=== PATIENT | male | born 1960 | race African-American/Black ===

== ENCOUNTER 2019-03-17 14:16 | Inpatient (IN) | payer MEDICARE, MEDICAID ==
[~2019-03-17] VITALS: Ht 167.6 cm; Wt 54.6 kg
[2019-03-17] MEDS ORDERED: ONDANSETRON HCL 4MG/2ML INJ IV STA (14:45)
[2019-03-17] MEDS ORDERED: MORPHINE SULFATE 4 MG/ML CPJ (NOT FOR IM USE) IV STA (14:45)
[2019-03-17] MEDS ORDERED: SODIUM CHLORIDE 0.9% 500 ML IV ONE (14:45)
[2019-03-17 15:36] LABS: CHLORIDE 101 mEq/L (98-107)
[2019-03-17 15:37] LABS: INR 1.1
[2019-03-17 15:38] LABS: HEMATOCRIT. 35.2 % (42.0-52.0); HEMOGLOBIN. 11.8 g/dL (14.0-18.0); MEAN CORPUSCULAR HEMOGLOBIN 30.7 pg (28.0-32.0); MEAN CORPUSCULAR VOLUME 91.6 fL (80.0-94.0); MEAN PLATELET VOLUME 6.6 fl (7.4-10.4); PLATELET 228 x1000/uL (130-400); RED BLOOD CELL COUNT 3.84 mill/uL (4.7-6.1)
[2019-03-17 16:50] LABS: PLATELET ESTIMATE NORMAL
[2019-03-17 17:20] LABS: CLARITY URINE CLEAR (CLEAR); COLOR URINE YELLOW (YELLOW); KETONES URINE NEGATIVE (NEGATIVE); LEUKOCYTE ESTERASE URINE NEGATIVE (NEGATIVE); NITRITE URINE NEGATIVE (NEGATIVE); OCCULT BLOOD URINE 3+ (NEGATIVE); PROTEIN URINE NEGATIVE (NEGATIVE); SPECIFIC GRAVITY URINE 1.011 (1.005-1.030); UROBILINOGEN URINE 0.2 E.U./dL (0.2-1.0)
[2019-03-17 22:20] VITALS: BP 124/83
[2019-03-18] VITALS: BP 106/77
[2019-03-18] MEDS ORDERED: CLONIDINE 0.1MG TABLET PO PRN
[2019-03-18] MEDS ORDERED: MORPHINE SULFATE 2 MG/ML CPJ (NOT FOR IM USE) IV PRN
[2019-03-18] MEDS ORDERED: ONDANSETRON HCL 4MG/2ML INJ IV PRN
[2019-03-18 04:00] VITALS: BP 103/78
[2019-03-18 05:58] LABS: BASOPHILS % 0.2 % (0.0-2.0); EOSINOPHILS % 0.1 % (0.0-5.0); HEMATOCRIT. 35.8 % (42.0-52.0); LYMPHOCYTES % 11.2 % (20.0-50.0); MEAN CORPUSCULAR VOLUME 92.8 fL (80.0-94.0); NEUTROPHILS % 81.5 % (40.0-76.0); PLATELET 234 x1000/uL (130-400); RED BLOOD CELL COUNT 3.86 mill/uL (4.7-6.1); RED CELL DISTRIBUTION WIDTH 13.9 % (11.6-14.6)
[2019-03-18 06:09] LABS: CHLORIDE 105 mEq/L (98-107)
[2019-03-18 06:23] LABS: LDL CHOLESTEROL 50 mg/dL (5-100)
[2019-03-18 06:25] LABS: HDL CHOLESTEROL 68 mg/dL (40-59)
[2019-03-18 08:00] VITALS: BP 92/62
[2019-03-18 12:00] VITALS: BP 105/73
[2019-03-18 16:00] VITALS: BP 102/66
[2019-03-18 20:00] VITALS: BP 116/81
[2019-03-18] MEDS: PANTOPRAZOLE SODIUM 40 MG/VIAL IV SCH (21:05)
[2019-03-19] VITALS: BP 120/82
[2019-03-19 04:00] VITALS: BP 121/84
[2019-03-19] MEDS ORDERED: SODIUM BICARBONATE 4% (2.4MEQ) 5ML VIAL IV ONE (08:10)
[2019-03-19] MEDS ORDERED: LIDOCAINE HCL 1% 20ML VIAL (Pyxis) INJ ONE (08:10)
[2019-03-19] MEDS: PANTOPRAZOLE SODIUM 40 MG/VIAL IV SCH ×2 (09:00→21:55)
[2019-03-19] MEDS ORDERED: BACTERIOSTATIC SODIUM CHLORIDE 0.9% 30ML VIAL IJ ONE (12:58)
[2019-03-19] MEDS ORDERED: DIAZEPAM 5 MG/ML 2ML CPJ IV NR (13:15)
[2019-03-19] MEDS ORDERED: MIDAZOLAM HCL 5 MG/5 ML VIAL ONE (14:12)
[2019-03-19] MEDS ORDERED: FENTANYL CITRATE/PF 50MCG/ML 2ML VIAL ONE (14:12)
[2019-03-19] MEDS ORDERED: DIAZEPAM 5 MG/ML 2ML CPJ ONE ×2 (14:13→14:34)
[2019-03-19] MEDS ORDERED: MIDAZOLAM HCL 5 MG/5 ML VIAL IV PRN (14:20)
[2019-03-19] MEDS ORDERED: FENTANYL CITRATE/PF 50MCG/ML 2ML VIAL IV PRN (14:21)
[2019-03-19] MEDS ORDERED: DIPHENHYDRAMINE 50MG/ML VIAL IV PRN (14:36)
[2019-03-19] MEDS ORDERED: DIPHENHYDRAMINE 50MG/ML VIAL ONE (14:40)
[2019-03-19 18:30] LABS: BG BASE EXCESS -5.1 mmol/L (-2.0-2.0); BG CARBOXYHEMOGLOBIN 0.3 % (0.5-1.5); BG FRACTION INSPIRED OXYGEN 28; BG HCO3 ACT 21.1 mmol/L (22.0-26.0); BG METHEMOGLOBIN 0.1 % (0.0-1.5); BG OXYHEMOGLOBIN 98.6 % (94.0-97.0); BG PCO2 43.7 mmHg (35.0-45.0); BG PH 7.302 (7.350-7.450); BG SAMPLE SITE RIGHT RADIAL; BG TOTAL HEMOGLOBIN 11.1 g/dL (12.0-18.0); BG VENT MODE NASAL CANNULA
[2019-03-19] MEDS ORDERED: NALOXONE HCL 0.4 MG/ML 1ML VIAL IV NR (18:30)
[2019-03-19] MEDS ORDERED: FLUMAZENIL 0.1 MG/ML 5ML VIAL IV ONE (18:36)
[2019-03-19] MEDS: FLUMAZENIL 0.1 MG/ML 5ML VIAL IV NR ×2 (18:38→18:46)
[2019-03-19] MEDS: FLUMAZENIL 0.1 MG/ML 5ML VIAL IV SCH ×2 (19:11→19:13)
[2019-03-19] MEDS ORDERED: DEXTROSE 50% WATER 50ML SYRINGE IV SCH (20:00)
[2019-03-19 21:51] LABS: BASOPHILS % 0.2 % (0.0-2.0); HEMOGLOBIN. 11.9 g/dL (14.0-18.0); LYMPHOCYTES % 7.6 % (20.0-50.0); MEAN CORPUSCULAR HEMOGLOBIN 30.5 pg (28.0-32.0); MEAN CORPUSCULAR VOLUME 94.8 fL (80.0-94.0); MEAN PLATELET VOLUME 6.5 fl (7.4-10.4); MONOCYTES % 6.3 % (2.0-8.0); NEUTROPHILS % 85.9 % (40.0-76.0); PLATELET 207 x1000/uL (130-400); RED CELL DISTRIBUTION WIDTH 14.1 % (11.6-14.6)
[2019-03-19 21:57] LABS: CHLORIDE 108 mEq/L (98-107)
[2019-03-19 22:12] LABS: PHOSPHORUS 8.1 mg/dL (2.5-4.9)
[2019-03-20] VITALS: BP 106/81
[2019-03-20 00:45] LABS: PROTHROMBIN TIME 10.7 sec (9.6-11.0)
[2019-03-20 04:06] VITALS: BP 104/69
[2019-03-20 08:48] VITALS: BP 106/74
[2019-03-20] MEDS: PANTOPRAZOLE SODIUM 40 MG/VIAL IV SCH ×2 (09:00→21:13)
[2019-03-20 09:17] LABS: BASOPHILS % 0.1 % (0.0-2.0); EOSINOPHILS % 0.2 % (0.0-5.0); HEMATOCRIT. 37.3 % (42.0-52.0); HEMOGLOBIN. 12.3 g/dL (14.0-18.0); LYMPHOCYTES % 8.5 % (20.0-50.0); MEAN CORPUSCULAR HEMOGLOBIN 30.3 pg (28.0-32.0); MEAN CORPUSCULAR VOLUME 91.7 fL (80.0-94.0); MONOCYTES % 7.3 % (2.0-8.0); NEUTROPHILS % 83.9 % (40.0-76.0); PLATELET 271 x1000/uL (130-400); RED BLOOD CELL COUNT 4.07 mill/uL (4.7-6.1); RED CELL DISTRIBUTION WIDTH 13.9 % (11.6-14.6)
[2019-03-20 09:42] LABS: CHLORIDE 105 mEq/L (98-107)
[2019-03-20] MEDS ORDERED: EZ-HD SUSPENSION(BARIUM SULFATE 340GM) PO ONE (10:04)
[2019-03-20] MEDS ORDERED: BARIUM SULFATE 176 GM SUSP.RECON ONE (10:05)
[2019-03-20] MEDS ORDERED: SIMETHICONE/SOD BICARB/CIT AC 1 EACH GRAN.EF.PK ONE (10:06)
[2019-03-20 10:46] LABS: PHOSPHORUS 8.9 mg/dL (2.5-4.9)
[2019-03-20 16:11] VITALS: BP 117/77
[2019-03-20 20:00] VITALS: BP 115/70
[2019-03-21] VITALS: BP 121/77
[2019-03-21] MEDS ORDERED: LIDOCAINE HCL 1% 20ML VIAL (Pyxis) INJ ONE (07:24)
[2019-03-21] MEDS ORDERED: SODIUM BICARBONATE 4% (2.4MEQ) 5ML VIAL IV ONE (07:24)
[2019-03-21 08:00] VITALS: BP 101/70
[2019-03-21] MEDS: PANTOPRAZOLE SODIUM 40 MG/VIAL IV SCH (09:29)
[2019-03-21 12:06] VITALS: BP 100/66
[2019-03-21 16:06] VITALS: BP 117/73
[2019-03-21 20:00] VITALS: BP 109/77
[2019-03-21] MEDS: CLARITHROMYCIN 500MG TABLET PO SCH (21:29)
[2019-03-21] MEDS: AMOXICILLIN 500 MG CAPSULE PO SCH (21:29)
[2019-03-21] MEDS: OMEPRAZOLE 20MG CAPSULE EXTENDED RELEASE PO SCH (21:29)
[2019-03-22] VITALS: BP 91/65
[2019-03-22 04:00] VITALS: BP 108/73
[2019-03-22] MEDS: OMEPRAZOLE 20MG CAPSULE EXTENDED RELEASE PO SCH ×2 (06:41→20:34)
[2019-03-22 07:11] LABS: CHLORIDE 105 mEq/L (98-107)
[2019-03-22 07:17] LABS: HEMATOCRIT. 34.6 % (42.0-52.0); HEMOGLOBIN. 11.6 g/dL (14.0-18.0); MEAN CORPUSCULAR HEMOGLOBIN 30.5 pg (28.0-32.0); MEAN CORPUSCULAR VOLUME 91.4 fL (80.0-94.0); MEAN PLATELET VOLUME 6.5 fl (7.4-10.4); PLATELET 183 x1000/uL (130-400); RED BLOOD CELL COUNT 3.79 mill/uL (4.7-6.1); RED CELL DISTRIBUTION WIDTH 13.9 % (11.6-14.6)
[2019-03-22 07:29] LABS: PHOSPHORUS 7.5 mg/dL (2.5-4.9)
[2019-03-22 08:00] VITALS: BP 107/72
[2019-03-22] MEDS: CLARITHROMYCIN 500MG TABLET PO SCH ×2 (08:29→20:34)
[2019-03-22] MEDS: AMOXICILLIN 500 MG CAPSULE PO SCH ×2 (08:29→20:36)
[2019-03-22 12:00] VITALS: BP 99/63
[2019-03-22 14:54] LABS: HEPATITIS B SURFACE ANTIGEN NEGATIVE
[2019-03-22 15:24] LABS: HEPATITIS A AB IGM NEGATIVE (NEGATIVE)
[2019-03-22 16:00] VITALS: BP 98/68
[2019-03-22 18:47] LABS: PLATELET ESTIMATE NORMAL
[2019-03-22 20:00] VITALS: BP 101/69
[2019-03-22] MEDS: CALCIUM ACETATE 667MG CAPSULE PO SCH (20:34)
[2019-03-22 22:35] LABS: CLARITY URINE CLOUDY (CLEAR); COLOR URINE YELLOW (YELLOW); KETONES URINE TRACE (NEGATIVE); LEUKOCYTE ESTERASE URINE 1+ (NEGATIVE); NITRITE URINE NEGATIVE (NEGATIVE); OCCULT BLOOD URINE NEGATIVE (NEGATIVE); PH URINE 5.5 (4.5-8.0); PROTEIN URINE TRACE (NEGATIVE); SPECIFIC GRAVITY URINE 1.035 (1.005-1.030)
[2019-03-23] VITALS: BP 99/64
[2019-03-23 04:00] VITALS: BP 99/67
[2019-03-23] MEDS: OMEPRAZOLE 20MG CAPSULE EXTENDED RELEASE PO SCH ×2 (06:24→21:49)
[2019-03-23 07:47] LABS: HEMATOCRIT. 30.6 % (42.0-52.0); HEMOGLOBIN. 10.4 g/dL (14.0-18.0); MEAN CORPUSCULAR HEMOGLOBIN 30.6 pg (28.0-32.0); MEAN CORPUSCULAR VOLUME 90.3 fL (80.0-94.0); MEAN PLATELET VOLUME 6.8 fl (7.4-10.4); PLATELET 178 x1000/uL (130-400); RED BLOOD CELL COUNT 3.39 mill/uL (4.7-6.1); RED CELL DISTRIBUTION WIDTH 13.8 % (11.6-14.6)
[2019-03-23 08:00] VITALS: BP 92/63
[2019-03-23 08:12] LABS: PHOSPHORUS 6.1 mg/dL (2.5-4.9)
[2019-03-23] MEDS: CLARITHROMYCIN 500MG TABLET PO SCH ×2 (10:10→21:54)
[2019-03-23] MEDS: CALCIUM ACETATE 667MG CAPSULE PO SCH ×4 (10:10→19:49)
[2019-03-23] MEDS: AMOXICILLIN 500 MG CAPSULE PO SCH ×2 (10:10→19:47)
[2019-03-23 10:53] LABS: CARCINO EMBRYONIC ANTIGEN 7.1 ng/ml; PROSTRATE SPECIFIC AG TOTAL 0.44 ng/mL (0.0-4.0)
[2019-03-23 12:00] VITALS: BP 98/59
[2019-03-23 12:05] LABS: PLATELET ESTIMATE NORMAL
[2019-03-23 16:00] VITALS: BP 125/86
[2019-03-23 20:00] VITALS: BP 105/77
[2019-03-24] VITALS: BP 134/74
[2019-03-24 04:00] VITALS: BP 113/76
[2019-03-24] MEDS: OMEPRAZOLE 20MG CAPSULE EXTENDED RELEASE PO SCH ×2 (06:37→21:45)
[2019-03-24 07:06] LABS: BASOPHILS % 0.2 % (0.0-2.0); HEMATOCRIT. 31.9 % (42.0-52.0); HEMOGLOBIN. 10.6 g/dL (14.0-18.0); LYMPHOCYTES % 8.1 % (20.0-50.0); MEAN CORPUSCULAR HEMOGLOBIN 30.7 pg (28.0-32.0); MEAN CORPUSCULAR VOLUME 92.5 fL (80.0-94.0); MEAN PLATELET VOLUME 7.3 fl (7.4-10.4); MONOCYTES % 6.3 % (2.0-8.0); NEUTROPHILS % 85.4 % (40.0-76.0); PLATELET 209 x1000/uL (130-400); RED BLOOD CELL COUNT 3.45 mill/uL (4.7-6.1); RED CELL DISTRIBUTION WIDTH 13.9 % (11.6-14.6)
[2019-03-24] MEDS: CALCIUM ACETATE 667MG CAPSULE PO SCH ×3 (07:50→18:18)
[2019-03-24 08:00] VITALS: BP 147/58
[2019-03-24 08:17] LABS: PHOSPHORUS 9.1 mg/dL (2.5-4.9)
[2019-03-24] MEDS: CLARITHROMYCIN 500MG TABLET PO SCH ×2 (09:00→21:45)
[2019-03-24] MEDS ORDERED: SODIUM POLYSTYRENE SULFONATE 15 G/60 ML BOT PO SCH (10:00)
[2019-03-24] MEDS: AMOXICILLIN 250MG CAPSULE PO SCH ×2 (11:00→21:45)
[2019-03-24 12:00] VITALS: BP 98/72
[2019-03-24 16:00] VITALS: BP 109/78
[2019-03-24 20:26] VITALS: BP 106/79
[2019-03-24] MEDS: FLUCONAZOLE 100MG TABLET PO SCH (21:45)
[2019-03-25] VITALS: BP 108/70
[2019-03-25 04:00] VITALS: BP 109/75
[2019-03-25 06:37] LABS: CHLORIDE 105 mEq/L (98-107)
[2019-03-25 06:48] LABS: BASOPHILS % 0.2 % (0.0-2.0); EOSINOPHILS % 0.1 % (0.0-5.0); HEMATOCRIT. 31.3 % (42.0-52.0); HEMOGLOBIN. 10.5 g/dL (14.0-18.0); LYMPHOCYTES % 7.2 % (20.0-50.0); MEAN CORPUSCULAR VOLUME 91.8 fL (80.0-94.0); MEAN PLATELET VOLUME 6.8 fl (7.4-10.4); NEUTROPHILS % 87.5 % (40.0-76.0); PLATELET 205 x1000/uL (130-400); RED BLOOD CELL COUNT 3.41 mill/uL (4.7-6.1); RED CELL DISTRIBUTION WIDTH 13.8 % (11.6-14.6)
[2019-03-25 06:50] LABS: PHOSPHORUS 7.3 mg/dL (2.5-4.9)
[2019-03-25 08:42] VITALS: BP 108/75
[2019-03-25] MEDS: CLARITHROMYCIN 500MG TABLET PO SCH ×2 (09:02→21:00)
[2019-03-25] MEDS: AMOXICILLIN 250MG CAPSULE PO SCH ×2 (09:02→17:00)
[2019-03-25] MEDS: OMEPRAZOLE 20MG CAPSULE EXTENDED RELEASE PO SCH ×2 (09:02→21:00)
[2019-03-25] MEDS: CALCIUM ACETATE 667MG CAPSULE PO SCH ×3 (09:17→17:50)
[2019-03-25] MEDS: SODIUM POLYSTYRENE SULFONATE 15 G/60 ML BOT PO NR ×2 (11:30→11:34)
[2019-03-25 12:29] VITALS: BP 107/76
[2019-03-25 16:05] VITALS: BP 110/74
[2019-03-25] MEDS: FLUCONAZOLE 100MG TABLET PO SCH (17:00)
[2019-03-25 20:12] VITALS: BP 116/79
[2019-03-26 00:10] VITALS: BP 113/79
[2019-03-26 04:00] VITALS: BP 109/80
[2019-03-26] MEDS: OMEPRAZOLE 20MG CAPSULE EXTENDED RELEASE PO SCH ×2 (06:34→21:15)
[2019-03-26 07:54] LABS: BASOPHILS % 0.1 % (0.0-2.0); EOSINOPHILS % 0.1 % (0.0-5.0); HEMATOCRIT. 33.6 % (42.0-52.0); HEMOGLOBIN. 11.1 g/dL (14.0-18.0); LYMPHOCYTES % 7.2 % (20.0-50.0); MEAN CORPUSCULAR HEMOGLOBIN 30.3 pg (28.0-32.0); MEAN CORPUSCULAR VOLUME 91.7 fL (80.0-94.0); MEAN PLATELET VOLUME 6.8 fl (7.4-10.4); MONOCYTES % 5.5 % (2.0-8.0); NEUTROPHILS % 87.1 % (40.0-76.0); PLATELET 188 x1000/uL (130-400); RED BLOOD CELL COUNT 3.66 mill/uL (4.7-6.1); RED CELL DISTRIBUTION WIDTH 13.9 % (11.6-14.6)
[2019-03-26 08:01] LABS: CHLORIDE 102 mEq/L (98-107)
[2019-03-26 08:09] LABS: PHOSPHORUS 6.9 mg/dL (2.5-4.9)
[2019-03-26 08:11] VITALS: BP 111/80
[2019-03-26] MEDS: AMOXICILLIN 250MG CAPSULE PO SCH ×2 (09:00→18:51)
[2019-03-26] MEDS: CLARITHROMYCIN 500MG TABLET PO SCH ×2 (09:44→21:15)
[2019-03-26] MEDS: CALCIUM ACETATE 667MG CAPSULE PO SCH ×3 (09:45→17:50)
[2019-03-26 12:10] VITALS: BP 111/79
[2019-03-26] MEDS ORDERED: OMEP20CA14 PO (12:26)
[2019-03-26] MEDS ORDERED: AM250 PO (12:26)
[2019-03-26] MEDS ORDERED: CLAR500T PO (12:26)
[2019-03-26] MEDS ORDERED: MIDODRINE HCL 2.5MG TABLET PO PRN (13:00)
[2019-03-26 16:00] VITALS: BP 130/81
[2019-03-26] MEDS: FLUCONAZOLE 100MG TABLET PO SCH (18:51)
[2019-03-26 20:47] VITALS: BP 108/82
[2019-03-27] VITALS (16 sets, daily range): BP systolic 103–121; BP diastolic 71–82
[2019-03-27] MEDS: OMEPRAZOLE 20MG CAPSULE EXTENDED RELEASE PO SCH (06:50)
[2019-03-27] MEDS: CALCIUM ACETATE 667MG CAPSULE PO SCH (07:50)
[2019-03-27] MEDS: CLARITHROMYCIN 500MG TABLET PO SCH (09:00)
[2019-03-27] MEDS: AMOXICILLIN 250MG CAPSULE PO SCH (09:00)
[2019-03-27] MEDS ORDERED: SODIUM BICARBONATE 4% (2.4MEQ) 5ML VIAL IV ONE (10:29)
[2019-03-27] MEDS ORDERED: HEPARIN 1000 UNITS/ML 10ML ONE (10:30)
[2019-03-27] MEDS ORDERED: LIDOCAINE HCL 1% 20ML VIAL (Pyxis) INJ ONE (10:30)
[2019-03-27 10:43] LABS: CHLORIDE 109 mEq/L (98-107)
[2019-03-27] MEDS ORDERED: FENTANYL CITRATE/PF 50MCG/ML 2ML VIAL ONE (10:43)
[2019-03-27 10:46] LABS: BASOPHILS % 0.1 % (0.0-2.0); EOSINOPHILS % 0.1 % (0.0-5.0); HEMATOCRIT. 35.1 % (42.0-52.0); HEMOGLOBIN. 11.5 g/dL (14.0-18.0); LYMPHOCYTES % 7.7 % (20.0-50.0); MEAN CORPUSCULAR HEMOGLOBIN 30.4 pg (28.0-32.0); MEAN CORPUSCULAR VOLUME 92.8 fL (80.0-94.0); MEAN PLATELET VOLUME 7.5 fl (7.4-10.4); MONOCYTES % 4.4 % (2.0-8.0); NEUTROPHILS % 87.7 % (40.0-76.0); PLATELET 150 x1000/uL (130-400); RED BLOOD CELL COUNT 3.79 mill/uL (4.7-6.1)
[2019-03-27] MEDS ORDERED: FENTANYL CITRATE/PF 50MCG/ML 2ML VIAL IV NR (11:15)
[2019-03-27 11:16] LABS: PHOSPHORUS 5.5 mg/dL (2.5-4.9)
== END 2019-03-27 15:43 | disposition home or self-care (01) | DRG 674 ==
LOC: ER 20:05 → 6WST 20:58 → EDBEDREQ 21:02 → EDBEDREQTM 21:02 → ENRESERV 21:25
PROVIDERS: ADMIT Family Medicine; ATTEND Family Medicine
PROC: 0W9G3ZZ Drainage of Peritoneal Cavity, Percutaneous Approach (ICD-10-PCS; principal; 2019-03-19)
PROC: 0DB68ZX Excision of Stomach, Via Natural or Artificial Opening Endoscopic, Diagnostic (ICD-10-PCS; 2019-03-19)
PROC: 5A1D70Z Performance of Urinary Filtration, Intermittent, Less than 6 Hours Per Day (ICD-10-PCS; 2019-03-20)
PROC: 02HV33Z Insertion of Infusion Device into Superior Vena Cava, Percutaneous Approach (ICD-10-PCS; 2019-03-21)
PROC: B548ZZA Ultrasonography of Superior Vena Cava, Guidance (ICD-10-PCS; 2019-03-21)
PROC: 5A1D70Z Performance of Urinary Filtration, Intermittent, Less than 6 Hours Per Day (ICD-10-PCS; 2019-03-21)
PROC: 5A1D70Z Performance of Urinary Filtration, Intermittent, Less than 6 Hours Per Day (ICD-10-PCS; 2019-03-24)
PROC: 5A1D70Z Performance of Urinary Filtration, Intermittent, Less than 6 Hours Per Day (ICD-10-PCS; 2019-03-25)
PROC: 02PYX3Z Removal of Infusion Device from Great Vessel, External Approach (ICD-10-PCS; 2019-03-27)
PROC: 02H633Z Insertion of Infusion Device into Right Atrium, Percutaneous Approach (ICD-10-PCS; 2019-03-27)
PROC: 0JH63XZ Insertion of Tunneled Vascular Access Device into Chest Subcutaneous Tissue and Fascia, Percutaneous Approach (ICD-10-PCS; 2019-03-27)
PROC: B5181ZA Fluoroscopy of Superior Vena Cava using Low Osmolar Contrast, Guidance (ICD-10-PCS; 2019-03-27)
DX: N17.0 Acute kidney failure with tubular necrosis (principal); Z68.1 Body mass index [BMI] 19.9 or less, adult; E87.1 Hypo-osmolality and hyponatremia; R64 Cachexia; E44.1 Mild protein-calorie malnutrition; K70.31 Alcoholic cirrhosis of liver with ascites; N13.2 Hydronephrosis with renal and ureteral calculous obstruction; K29.70 Gastritis, unspecified, without bleeding; I95.9 Hypotension, unspecified; J44.9 Chronic obstructive pulmonary disease, unspecified; Z96.649 Presence of unspecified artificial hip joint; D63.8 Anemia in other chronic diseases classified elsewhere; E83.39 Other disorders of phosphorus metabolism; E87.6 Hypokalemia; F41.9 Anxiety disorder, unspecified; E83.42 Hypomagnesemia; I50.9 Heart failure, unspecified; K21.9 Gastro-esophageal reflux disease without esophagitis; R13.10 Dysphagia, unspecified; R00.0 Tachycardia, unspecified; R31.9 Hematuria, unspecified; N18.9 Chronic kidney disease, unspecified; Z87.891 Personal history of nicotine dependence
CPT/HCPCS: 36415; 36558; 36589; 36600; 49083; 71045; 74176; 76700; 76770; 77001; 80048; 80053; 80061; 80076; 81003; 82105; 82140; 82375; 82378; 82570; 82805; 82962; 83735; 83880; 84100; 84153; 84156; 84300; 84484; 85025; 86705; 86706; 86709; 86803; 87340; 88305; 88312; 88313; 92610; 93005; 99152; 99153; 99285; C1750; C1752; C1893; C9113; J1200; J1642; J1644; J2250; J2270; J2310; J2405; J3010; J3490; J7030; J7040; J7517; A4315; G0103; G0500